=== PATIENT | male | born 1990 | race Caucasian/White ===

== ENCOUNTER 2018-12-31 22:38 | Emergency (ER) | payer SELFPAY ==
[~2018-12-31] VITALS: Ht 180.3 cm; Wt 129.3 kg
[2018-12-31 22:57] VITALS: BP 131/72
--- NOTE | 2018-12-31 23:02 | NUR ---
EKG DONE IN TRIAGE.
--- NOTE | 2019-01-01 02:02 | NUR ---
PATIENT LEFT WITHOUT BEING SEEN BY DR. BATEMAN. CALLED X3. NO FURTHER CARE PROVIDED FOR PATIENT.
== END 2019-01-01 02:02 | disposition left against medical advice (07) ==
LOC: MED 22:38
DX: R07.9 Chest pain, unspecified (principal); R42 Dizziness and giddiness; Z53.21 Procedure and treatment not carried out due to patient leaving prior to being seen by health care provider
CPT/HCPCS: 93005